=== PATIENT | female | born 1970 | race Caucasian/White ===

== ENCOUNTER 2016-09-11 14:15 | Emergency (ER) | payer BC, MEDICAID ==
[2016-09-11 14:37] VITALS: BP 103/70
[2016-09-11 14:56] LABS: BILIRUBIN,URINE NEGATIVE (NEGATIVE); PH,URINE 7.5 PH (5.0-7.5)
[2016-09-11 14:59] LABS: UA w/ MICROSCOPIC CHARGE YES
[2016-09-11 15:11] LABS: WBC,URINE >25 /HPF (0-5)
[2016-09-11 15:12] LABS: UR CULTURE IF IND INDICATED
--- NOTE | 2016-09-11 15:41 | ED Physician Documentation ---
PD HPI FEMALE - Stated complaint Stated Complaint: FEMALE - Chief complaint Chief Complaint: UTI - History obtained from History obtained from: Patient - History of Present Illness Timing - onset: How many days ago (4) Timing - duration: Days (4) Timing - details: Gradual onset, Still present Associated symptoms: Back pain, Dysuria, Urinary frequency Similar symptoms before: Diagnosis (UTI) Recently seen: Not recently seen - Additional information Additional information: 46-year-old female has developed acute urinary urgency frequency and dysuria this is not much better with the use of the Azo. She has been drinking extra fluids. She has now developed some flank pain this morning. She has not had any fever or nausea. Review of Systems Constitutional: denies: Fever, Chills Eyes: denies: Decreased vision Ears: denies: Ear pain Nose: denies: Congestion Respiratory: denies: Cough GI: denies: Abdominal Pain, Nausea, Vomiting, Constipation, Diarrhea : reports: Dysuria, Frequency Skin: denies: Rash Musculoskeletal: reports: Back pain. 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 - Present Medications Home Medications: Ambulatory Orders Medication Instructions Recorded Confirmed Ciprofloxacin HCl [Cipro] 500 mg PO BID #10 tablet 09/11/16 - Allergies Allergies/Adverse Reactions: Allergies Allergy/AdvReac Type Severity Reaction Status Date / Time Penicillins Allergy Severe Respiratory Verified 09/11/16 14:37 codeine Allergy Intermediate Dizziness Verified 09/11/16 14:37 Sulfa (Sulfonamide Allergy Intermediate Rash Verified 09/11/16 14:37 Antibiotics) povidone-iodine Allergy Rash Verified 09/11/16 14:37 [From Betadine] soap * [From Betadine] Allergy Rash Verified 09/11/16 14:37 - Social History Does the pt smoke?: No Smoking Status: Never smoker Does the pt drink ETOH?: Yes Does the pt have substance abuse?: No - Immunizations Immunizations are current?: Yes - POLST Patient has POLST: No PD ED PE NORMAL - Vitals Vital signs reviewed: Yes (normal ) - General General: Alert and oriented X 3, No acute distress, Well developed/nourished - HEENT HEENT: Atraumatic, PERRL - Respiratory Respiratory: No respiratory distress - Back Back: No spinal TTP, Other (mild left flank pain to palpation. ) - Derm Derm: Normal color, Warm and dry, No rash - Extremities Extremities: No deformity, No edema - Neuro Neuro: No motor deficit, No sensory deficit - Psych Psych: Normal mood, Normal affect Results - Vitals Vitals: Vital Signs - 24 hr 09/11/16 14:20 Temperature 36.8 C Heart Rate 68 Respiratory 14 Rate Blood Pressure 103/70 O2 Saturation 100 Oxygen O2 Source Room air - Labs Labs: Laboratory Tests 09/11/16 14:47 Urine Color YELLOW Urine Clarity HAZY Urine pH 7.5 Ur Specific [place] 1.010 Urine Protein NEGATIVE Urine Glucose (UA) NEGATIVE Urine Ketones NEGATIVE Urine Occult Blood MODERATE H Urine Nitrite NEGATIVE Urine Bilirubin NEGATIVE Urine Urobilinogen 0.2 (NORMAL) Ur Leukocyte Esterase NEGATIVE Urine RBC TNTC H Urine WBC >25 H Ur Squamous Epith Cells FEW Squamous Urine Bacteria Moderate H Ur Microscopic Review INDICATED Urine Culture Comments INDICATED PD MEDICAL DECISION MAKING - ED course Complexity details: reviewed old records, reviewed results, re-evaluated patient , considered differential, d/w patient ED course: 46-year-old female with urinary symptoms for several days has evidence of urinary tract infection on microscopic examination of the urine and she is allergic to penicillin and sulfa. We will place her on some Cipro. Departure - Departure Disposition: 01 Home, Self Care Clinical Impression: Urinary tract infection Qualifiers: Urinary tract infection type: acute cystitis Hematuria presence: without hematuria Qualified Code(s): N30.00 - Acute cystitis without hematuria Condition: Stable Instructions: ED UTI Cystitis Female Follow-Up: [facility] [Provider Group] Prescriptions: Ciprofloxacin HCl [Cipro] 500 mg PO BID #10 tablet
== END 2016-09-11 15:50 | disposition home or self-care (01) ==
LOC: ED 14:15
DX: N30.00 Acute cystitis without hematuria (principal); Z98.84 Bariatric surgery status
CPT/HCPCS: 81001; 81003; 87077; 87086; 99283

== ENCOUNTER 2017-04-13 13:03 | Emergency (ER) | payer SELFPAY ==
[2017-04-13 13:37] LABS: BILIRUBIN,URINE NEGATIVE (NEGATIVE); GLUCOSE, URINE (UA) NEGATIVE (NEGATIVE); KETONES,URINE (UA) NEGATIVE (NEGATIVE); LEUKOCYTE ESTERASE, URINE TRACE (NEGATIVE); NITRITE,URINE NEGATIVE (NEGATIVE); OCCULT BLOOD,URINE MODERATE (NEGATIVE); PH,URINE 6.5 PH (5.0-7.5); PROTEIN,URINE 100 mg/dL (NEGATIVE); UROBILINOGEN,URINE 0.2 (NORMAL) E.U./dL (NORMAL)
[2017-04-13 13:38] LABS: CLARITY,URINE CLOUDY (CLEAR)
[2017-04-13 13:55] LABS: BACTERIA,URINE Many /HPF (None Seen); SQUAMOUS EPITHELIAL CELL,UR RARE Squamous (<= Few); WBC CLUMPS,URINE PRESENT
--- NOTE | 2017-04-13 14:27 | ED Physician Documentation ---
PD HPI FEMALE - Stated complaint Stated Complaint: FEMALE - Chief complaint Chief Complaint: Abd Pain - History obtained from History obtained from: Patient - History of Present Illness Timing - onset: Yesterday Timing - duration: Days (1) Timing - details: Gradual onset, Still present Associated symptoms: Abdominal pain, Back pain, Urinary frequency. 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 denies: Vomiting, Diarrhea : reports: Frequency. denies: Dysuria, Discharge Skin: denies: Rash, Lesions Neurologic: reports: Generalized weakness. 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 - Present Medications Home Medications: Ambulatory Orders Medication Instructions Recorded Confirmed Ciprofloxacin HCl [Cipro] 500 mg PO BID #10 tablet 09/11/16 Naproxen 375 mg PO BID #20 tablet 04/13/17 Nitrofurantoin Monohyd/M-Cryst 100 mg PO BID #14 capsule 04/13/17 [Macrobid 100 mg Capsule] Ondansetron Odt [Zofran] 4 mg TL Q6H PRN #15 tablet 04/13/17 Tramadol HCl 50 mg PO Q6H PRN #20 tablet 04/13/17 - Allergies Allergies/Adverse Reactions: Allergies Allergy/AdvReac Type Severity Reaction Status Date / Time Penicillins Allergy Severe Respiratory Verified 09/11/16 14:37 codeine Allergy Intermediate Dizziness Verified 09/11/16 14:37 Sulfa (Sulfonamide Allergy Intermediate Rash Verified 09/11/16 14:37 Antibiotics) povidone-iodine Allergy Rash Verified 09/11/16 14:37 [From Betadine] soap * [From Betadine] Allergy Rash Verified 09/11/16 14:37 - Social History Does the pt smoke?: No Smoking Status: Never smoker Does the pt drink ETOH?: Yes Does the pt have substance abuse?: No - Immunizations Immunizations are current?: Yes - POLST Patient has POLST: No PD ED PE NORMAL - Vitals Vital signs reviewed: Yes - General General: Alert and oriented X 3, Well developed/nourished, Other (appears in pain) - HEENT HEENT: PERRL, Pharynx benign - Neck Neck: Supple, no meningeal sign, No adenopathy - Cardiac Cardiac: No murmur - Respiratory Respiratory: Clear bilaterally - Abdomen Abdomen: Soft, Non tender - Female Female : Deferred - Rectal Rectal: Deferred - Back Back: No CVA TTP - Derm Derm: Normal color, Warm and dry - Extremities Extremities: No tenderness to palpate, Normal ROM s pain, No edema, No calf tenderness / cord - Neuro Neuro: Alert and oriented X 3, No motor deficit, Normal speech Results - Vitals Vitals: Vital Signs - 24 hr 04/13/17 04/13/17 04/13/17 13:06 15:33 16:30 Temperature 37 C Heart Rate 77 56 L 56 L Respiratory 18 12 18 Rate Blood Pressure 117/70 112/64 99/59 L O2 Saturation 100 98 100 04/13/17 04/13/17 17:30 18:30 Temperature Heart Rate 60 60 Respiratory 18 18 Rate Blood Pressure 110/60 110/60 O2 Saturation 100 100 Oxygen O2 Source Room air - Labs Labs: Microbiology 04/13/17 13:34 Urine Culture - Preliminary Urine,Clean Catch Escherichia Coli Laboratory Tests 04/13/17 04/13/17 04/13/17 13:34 14:45 14:45 WBC 5.9 RBC 3.40 L Hgb 11.0 L Hct 32.7 L MCV 96.0 MCH 32.4 H MCHC 33.8 RDW 12.7 Plt Count 179 MPV 8.9 Neut # 4.5 Lymph # 1.0 L [place] # 0.4 Eos # 0.0 Baso # 0.0 Absolute Nucleated RBC 0.00 Nucleated RBC % 0.0 Sodium 138 Potassium 4.0 Chloride 108 Carbon Dioxide 25 Anion Gap 5.0 L BUN 9 Creatinine 0.6 Estimated GFR (MDRD) 108 Glucose 64 L Calcium 8.7 Total Bilirubin 0.5 AST 17 ALT 12 Alkaline Phosphatase 47 Total Protein 7.1 Albumin 4.1 Globulin 3.0 Albumin/Globulin Ratio 1.4 Lipase 16 L Urine Color YELLOW Urine Clarity CLOUDY Urine pH 6.5 Ur Specific [place] 1.025 Urine Protein 100 H Urine Glucose (UA) NEGATIVE Urine Ketones NEGATIVE Urine Occult Blood MODERATE H Urine Nitrite NEGATIVE Urine Bilirubin NEGATIVE Urine Urobilinogen 0.2 (NORMAL) Ur Leukocyte Esterase TRACE H Urine RBC 11-25 H Urine WBC 11-25 H Urine WBC Clumps PRESENT Ur Squamous Epith Cells RARE Squamous Urine Bacteria Many H Ur Microscopic Review INDICATED Urine Culture Comments INDICATED PD MEDICAL DECISION MAKING - ED course Complexity details: reviewed results (she thought she had had ovary removed on right, s/p hyst. Having RLQ pain. Mild UTI but not enough to account for symptoms. No stones/hydro. Appendix not seen but no secondary signs of infection there. Does have 5 cm cyst on right, so likely cause of the pain. No free fluid. ), re-evaluated patient (improved after IV meds. 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 ), considered differential, d/w patient Departure - Departure Disposition: Home, Self Care Clinical Impression: Lower abdominal pain UTI (urinary tract infection) Qualifiers: Urinary tract infection type: acute cystitis Hematuria presence: without hematuria Qualified Code(s): N30.00 - Acute cystitis without hematuria Ovarian cyst Qualifiers: Laterality: right Qualified Code(s): N83.201 - Unspecified ovarian cyst, right side Record reviewed to determine appropriate education?: Yes Instructions: ED Cyst Ovarian, ED UTI Cystitis Female Follow-Up: Juan Carter MD [Provider Admit Priv/Credential] - Prescriptions: Naproxen 375 mg PO BID #20 tablet Nitrofurantoin Monohyd/M-Cryst [Macrobid 100 mg Capsule] 100 mg PO BID #14 capsule Ondansetron Odt [Zofran] 4 mg TL Q6H PRN #15 tablet PRN Reason: Nausea / Vomiting Tramadol HCl 50 mg PO Q6H PRN #20 tablet PRN Reason: Pain Comments: You do have a mild bladder infection and use Macrobid twice daily for a week for that. I do not think that is the cause of your pain right now. You do have a large ovarian cyst on the right and that is likely the cause. Naproxen twice daily for inflammation. Add Tylenol or tramadol if needed for pains. Call [facility] tomorrow for an appointment for follow-up later in the week. Recheck if worsening symptoms. Forms: Activity restrictions Discharge Date/Time: 04/13/17 19:25
[2017-04-13] MEDS ORDERED: KETOROLAC 60 MG/2 ML VIAL IVP STA (14:44)
[2017-04-13] MEDS ORDERED: HYDROmorphone 1 MG/ML SYRINGE IVP STA ×2 (14:44→16:18)
[2017-04-13] MEDS ORDERED: ONDANSETRON 4 MG/2 ML VIAL IVP STA ×2 (14:44→16:38)
[2017-04-13 15:09] LABS: BASOPHILS % (AUTO) 0.6 %; EOSINOPHILS % (AUTO) 0.2 %; LYMPHOCYTES % (AUTO) 16.6 %; MEAN CORPUSCULAR HEMOGLOBIN 32.4 pg (27.0-31.0); MEAN CORPUSCULAR HGB CONC 33.8 g/dL (32.0-36.0); MEAN PLATELET VOLUME 8.9 fL (7.9-10.8); MONOCYTES # (AUTO) 0.4 10^3/uL (0.0-1.0); MONOCYTES % (AUTO) 7.3 %; NEUTROPHILS # (AUTO) 4.5 10^3/uL (1.5-6.6); NEUTROPHILS % (AUTO) 75.3 %; PLT - PLATELET COUNT 179 10^3/uL (130-450); RED CELL DISTRIBUTION WIDTH 12.7 % (12.0-15.0); WHITE BLOOD COUNT 5.9 x10^3/uL (4.8-10.8)
[2017-04-13 15:26] LABS: ALBUMIN 4.1 g/dL (3.2-5.5); ALBUMIN/GLOBULIN RATIO 1.4 (1.0-2.2); BILIRUBIN,TOTAL 0.5 mg/dL (0.2-1.0); CALCIUM 8.7 mg/dL (8.5-10.3); CREATININE 0.6 mg/dL (0.4-1.0); TOTAL PROTEIN 7.1 g/dL (6.7-8.2)
--- NOTE | 2017-04-13 15:41 | CT Report ---
EXAM: CT ABDOMEN AND PELVIS (CT KUB) EXAM DATE: 04/13/2017 03:20 PM. CLINICAL HISTORY: Right low back/flank pain today. COMPARISONS: 04/03/2013. TECHNIQUE: Routine axial helical CT imaging was performed through the abdomen and pelvis without IV c ontrast. Reconstructions: Coronal and sagittal. In accordance with CT protocol optimization, one or more of the following dose reduction techniques w ere utilized for this exam: automated exposure control, adjustment of mA and/or KV based on patient s ize, or use of iterative reconstructive technique. FINDINGS: Lung Bases: Unremarkable. Right Kidney/Ureter: No stones, hydronephrosis, or hydroureter. No perinephric fat stranding. Left Kidney/Ureter: No stones, hydronephrosis, or hydroureter. No perinephric fat stranding. Other Solid Organs: Noncontrast images of the solid organs are grossly unremarkable. Gallbladder/Bile Ducts: Unremarkable. Peritoneal Cavity: No free fluid, free air or katelyn adenopathy. There is surgical clips from the stom ach suggestive of prior Krystyna-en-Y gastrostomy. Bowel is otherwise grossly unremarkable. Pelvic Organs: No bladder stones or wall thickening. The patient appears to be post-hysterectomy. The right ovary measures approximately 4.5 x 2.9 x 2.9 cm (series 3 image 75, and series 6 image 45). Th e left ovary appears within normal limits. No free fluid in the pelvis. Vasculature: Unremarkable. Other: There is mild degenerative disk change at the L5-S1 level. No acute osseous abnormality or gustavo picious osseous lesion. IMPRESSION: 1. No urinary tract stones or obstruction. 2. The right ovary appears somewhat enlarged compared to the prior exam, measuring up to 4.6 cm in di ameter. Pelvic ultrasound may be helpful for further evaluation. [facility] Referring Provider Line: [phone] SITE ID: [id number]
--- NOTE | 2017-04-13 18:15 | Ultrasound Preliminary Report ---
Exam: US PEL NON OB W/TV + DOP LTD IMPRESSION: 1. The right ovary is enlarged by a septated cyst or 2 adjacent cysts. There is blood flow in the rig ht ovary on Doppler. Left ovary is not seen on ultrasound but is normal in size on today's CT. [facility] SITE ID: [id number]
--- NOTE | 2017-04-13 18:15 | Ultrasound Report ---
EXAM: PELVIC ULTRASOUND EXAM DATE: 04/13/2017 05:39 PM. CLINICAL HISTORY: Right lower abd pain. COMPARISON: CT 04/13/2017. TECHNIQUE: Realtime transabdominal pelvic scan performed to identify the uterus and adnexa and as an overview of other pelvic structures, followed by transvaginal scan to provide greater detail of the u terus and adnexa, with static image documentation. FINDINGS: Uterus not visualized. Right Ovary: 5.2 x 2.4 x 4.6 cm, volume 30 cc. There is a septated complex cyst versus 2 adjacent cys ts located within the right ovary. The total area measures 4.7 x 2.8 x 4.5 cm. Flow is present within the right ovarian tissue on Doppler. Left Ovary: Not seen Free Fluid: None. Other: None. IMPRESSION: 1. The right ovary is enlarged by a septated cyst or 2 adjacent cysts. There is blood flow in the rig ht ovary on Doppler. Left ovary is not seen on ultrasound but is normal in size on today's CT. [facility] Referring Provider Line: [phone] SITE ID: [id number]
[2017-04-13] MEDS ORDERED: NITROFURANTOIN MACRO 100 MG CAPSULE PO STA (18:21)
[2017-04-13 18:41] VITALS: BP 110/60
== END 2017-04-13 19:25 | disposition home or self-care (01) ==
LOC: ED 13:03
DX: N83.201 Unspecified ovarian cyst, right side (principal); N30.00 Acute cystitis without hematuria
CPT/HCPCS: 36415; 51798; 74176; 76830; 76856; 80053; 81001; 83690; 85025; 87086; 87181; 93976; 96374; 96375; 96376; 99283; A9270; J1170; 81003

== ENCOUNTER 2018-02-10 23:58 | Outpatient (CLI) | payer MEDICAID | END 2018-02-10 23:59 | disposition critical access hospital (66) | LOC: EMS 23:58 | PROVIDERS: ATTEND Surgery | DX: S09.90XA Unspecified injury of head, initial encounter (principal); R45.1 Restlessness and agitation; W07.XXXA Fall from chair, initial encounter; Y92.511 Restaurant or cafe as the place of occurrence of the external cause | CPT/HCPCS: A0425; A0429; A0999 ==

== ENCOUNTER 2018-02-11 00:13 | Emergency (ER) | payer MEDICAID ==
[2018-02-11 00:37] VITALS: BP 118/74
--- NOTE | 2018-02-11 01:01 | ED Physician Documentation ---
PD HPI HEAD INJURY - Stated complaint Stated Complaint: FALL/HIT HEAD - Chief complaint Chief Complaint: Trauma Hd/Nk - History obtained from History obtained from: Patient, EMS - History of Present Illness Mechanism of head injury: Fell (off barstool and struck head) Where head injury occurred: Bar Timing - onset: How many hours ago (1) Pain level max: 5 Pain level now: 2 Location of injury: Back Quality of pain: Pain Associated symptoms: No: LOC, AMS, Amnesia, Nausea / vomiting, Neck pain, Paresthesias, Seizures, Ear drainage, Nasal drainage Symptoms improve with: Rest Symptoms worsen with: Palpation, Movement Contributing factors: Intoxicated Similar symptoms before: Has not had sx before Recently seen: Not recently seen Review of Systems Unable to obtain: Intoxicated Constitutional: denies: Fever GI: denies: Vomiting Neurologic: denies: Focal weakness, Numbness PD PAST MEDICAL HISTORY - Past Medical History Cardiovascular: None Respiratory: None GI: None : None - Past Surgical History Past Surgical History: Yes 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 - Present Medications Home Medications: Ambulatory Orders Medication Instructions Recorded Confirmed Ciprofloxacin HCl [Cipro] 500 mg PO BID #10 tablet 09/11/16 Naproxen 375 mg PO BID #20 tablet 04/13/17 Nitrofurantoin Monohyd/M-Cryst 100 mg PO BID #14 capsule 04/13/17 [Macrobid 100 mg Capsule] Ondansetron Odt [Zofran] 4 mg TL Q6H PRN #15 tablet 04/13/17 Tramadol HCl 50 mg PO Q6H PRN #20 tablet 04/13/17 - Allergies Allergies/Adverse Reactions: Allergies Allergy/AdvReac Type Severity Reaction Status Date / Time Penicillins Allergy Severe Respiratory Verified 09/11/16 14:37 codeine Allergy Intermediate Dizziness Verified 09/11/16 14:37 Sulfa (Sulfonamide Allergy Intermediate Rash Verified 09/11/16 14:37 Antibiotics) povidone-iodine Allergy Rash Verified 09/11/16 14:37 [From Betadine] soap * [From Betadine] Allergy Rash Verified 09/11/16 14:37 - Social History Does the pt smoke?: No Smoking Status: Never smoker Does the pt drink ETOH?: Yes Does the pt have substance abuse?: No - Immunizations Immunizations are current?: Yes - POLST Patient has POLST: No PD ED PE NORMAL - Vitals Vital signs reviewed: Yes (T36.8) - General General: Well developed/nourished, Other (alert, intermittently combative) - HEENT HEENT: Atraumatic, PERRL, Ears normal, Moist mucous membranes, Pharynx benign - Neck Neck: Other (mild upper C-spine TTP. no step off or deformity.) - Cardiac Cardiac: RRR - Respiratory Respiratory: No respiratory distress, Clear bilaterally - Abdomen Abdomen: Soft, Non tender, Non distended - Back Back: No spinal TTP - Derm Derm: Warm and dry - Extremities Extremities: No deformity, Normal ROM s pain - Neuro Neuro: No motor deficit, No sensory deficit Results - Vitals Vitals: Vital Signs - 24 hr 02/11/ 00:32 Heart Rate 93 Respiratory 18 Rate Blood Pressure 118/74 O2 Saturation 95 Oxygen O2 Source Room air - Rads (name of study) head CT Radiology: Prelim report reviewed, EMP read contemporaneously, See rad report (No acute abnormality) Cervical spine CT Radiology: Prelim report reviewed, EMP read contemporaneously, See rad report (No acute abnormality) PD MEDICAL DECISION MAKING - ED course Complexity details: reviewed results, re-evaluated patient, considered differential, d/w patient ED course: 47-year-old female who presents to the emergency department after a head and neck injury at a bar tonight. No acute findings on CT scan. No neurological deficits. She is intoxicated, however family is comfortable taking her home. She is discharged to family's care and will follow up with her doctor as needed. Patient and family counseled regarding signs and symptoms for which I believe and urgent re-evaluation would be necessary. Patient with good understanding of and agreement to plan and is comfortable going home at this time This document was made in part using voice recognition software. While efforts are made to proofread this document, sound alike and grammatical errors may occur. Departure - Departure Disposition: 01 Home, Self Care Clinical Impression: Neck pain Head injury Qualifiers: Encounter type: initial encounter Qualified Code(s): S09.90XA - Unspecified injury of head, initial encounter Alcohol intoxication Qualifiers: Complication of substance-induced condition: uncomplicated Qualified Code(s): F10.920 - Alcohol use, unspecified with intoxication, uncomplicated Condition: Stable Instructions: ED Head Injury Closed Follow-Up: your,doctor as needed. [Other] Comments: You can use Motrin or Tylenol as needed for pain. Return if you worsen. Your head CT and cervical spine CT are normal tonight. Discharge Date/Time: 02/11/18 02:10
--- NOTE | 2018-02-11 01:01 | CT Report ---
Reason: fall, head injury, pt intoxicated Procedure Date: 02/11/2018 Accession Number: [id number] / [id number] Procedure: CT - Head W/O CPT Code: FULL RESULT: EXAM: CT HEAD EXAM DATE: 02/11/2018 12:33 AM. CLINICAL HISTORY: Fall, head injury, patient intoxicated. COMPARISON: None. TECHNIQUE: Multiaxial CT images were obtained from the foramen magnum to the vertex. Reformats: Sagittal and coronal. IV contrast: None. In accordance with CT protocol optimization, one or more of the following dose reduction techniques were utilized for this exam: automated exposure control, adjustment of mA and/or KV based on patient size, or use of iterative reconstructive technique. FINDINGS: Parenchyma: No intraparenchymal hemorrhage. No evidence of mass, midline shift, or CT findings of infarction. Church-white differentiation is distinct. Extraaxial Spaces: Normal for age. No subdural or epidural collections identified. Ventricles: Normal in size and position. Sinuses and Orbits: Imaged paranasal sinuses, orbits, and mastoids show no significant abnormality. Bones: No evidence of fracture or calvarial defect. Other: None. IMPRESSION: Negative head CT. [facility]
--- NOTE | 2018-02-11 01:55 | CT Report ---
Reason: fall, neck injury, pt intoxicated Procedure Date: 02/11/2018 Accession Number: [id number] / [id number] Procedure: CT - Cervical Spine W/O CPT Code: FULL RESULT: EXAM: CT CERVICAL SPINE WITHOUT CONTRAST DATE: 02/11/2018 01:00 AM. HISTORY: Neck pain, altered mental status, fall. COMPARISONS: None. TECHNIQUE: Thin-section axial images were acquired of the cervical spine without contrast. Post-processing: Coronal and sagittal reformats. Other: None. In accordance with CT protocol optimization, one or more of the following dose reduction techniques were utilized for this exam: automated exposure control, adjustment of mA and/or KV based on patient size, or use of iterative reconstructive technique. FINDINGS: Alignment: No scoliosis or spondylolisthesis. Bones: No fracture or bone lesion. Interspace Levels/Facets: C1-C2: Unremarkable. C2-C3: Unremarkable. C3-C4: Unremarkable. C4-C5: Unremarkable. C5-C6: Unremarkable. C6-C7: Unremarkable. C7-T1: Unremarkable. Musculature: Normal. No fatty atrophy. Other: The paravertebral and prevertebral soft tissues are unremarkable. The lung apices are clear. IMPRESSION: Normal cervical spine CT. [facility]
== END 2018-02-11 02:10 | disposition home or self-care (01) ==
LOC: EDUNIT# → ED 00:13
DX: S09.90XA Unspecified injury of head, initial encounter (principal); M54.2 Cervicalgia; F10.129 Alcohol abuse with intoxication, unspecified; W07.XXXA Fall from chair, initial encounter; Y93.9 Activity, unspecified; Y92.89 Other specified places as the place of occurrence of the external cause
CPT/HCPCS: 70450; 72125; 99283

== ENCOUNTER 2018-07-07 17:38 | Outpatient (CLI) | payer MEDICAID | END 2018-07-07 17:39 | disposition critical access hospital (66) | LOC: EMS 17:38 | PROVIDERS: ATTEND Surgery | DX: M54.2 Cervicalgia (principal); R20.0 Anesthesia of skin; V49.40XA Driver injured in collision with unspecified motor vehicles in traffic accident, initial encounter; Y92.414 Local residential or business street as the place of occurrence of the external cause | CPT/HCPCS: A0425; A0429; A0999 ==

== ENCOUNTER 2018-07-07 17:59 | Emergency (ER) | payer OTHER, MEDICAID ==
[2018-07-07] MEDS ORDERED: KETOROLAC 30 MG/ML VIAL IM STA (18:12)
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
[2018-07-07] MEDS ORDERED: MORPHINE 10 MG/ML VIAL IM STA (19:21)
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
[2018-07-07 19:38] VITALS: BP 129/65
[2018-07-07] MEDS ORDERED: CYCLOBENZAPRINE 10 MG TABLET PO STA (20:11)
== END 2018-07-07 20:36 | disposition home or self-care (01) ==
LOC: EDUNIT# → ED 17:59
DX: S09.90XA Unspecified injury of head, initial encounter (principal); M54.2 Cervicalgia; M62.830 Muscle spasm of back; V43.52XA Car driver injured in collision with other type car in traffic accident, initial encounter
CPT/HCPCS: 70450; 72070; 72100; 72125; 96372; 99283; A9270

== ENCOUNTER 2019-01-16 12:04 | Emergency (ER) | payer MEDICAID, OTHER ==
[2019-01-16 12:16] VITALS: BP 107/60
[2019-01-16] MEDS ORDERED: IBUPROFEN 800 MG TABLET PO STA (12:40)
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
--- NOTE | 2019-01-16 13:36 | ED Physician Documentation ---
PD HPI LOWER EXT INJURY - Stated complaint Stated Complaint: RT FOOT PX - Chief complaint Chief Complaint: Ext Problem - History obtained from History obtained from: Patient - History of Present Illness PD HPI LOW EXT INJURY LOCATION: Right, Foot Type of injury: Twist Where injury occurred: Home Timing - onset: How many hours ago (1) Timing - duration: Hours (1) Timing - details: Abrupt onset Pain level max: 6 Pain level now: 5 Improved by: Rest, Ice, Immobilization Worsened by: Moving, Palpating, Other (walking) Associated symptoms: Swelling, Discolored (bruising). 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 - Present Medications Home Medications: Ambulatory Orders Medication Instructions Recorded Confirmed No Known Home Medications 01/16/19 01/16/19 - Allergies Allergies/Adverse Reactions: Allergies Allergy/AdvReac Type Severity Reaction Status Date / Time Penicillins Allergy Severe Respiratory Verified 01/16/19 12:16 codeine Allergy Intermediate Dizziness Verified 01/16/19 12:16 Sulfa (Sulfonamide Allergy Intermediate Rash Verified 01/16/19 12:16 Antibiotics) povidone-iodine Allergy Rash Verified 01/16/19 12:16 [From Betadine] soap * [From Betadine] Allergy Rash Verified 01/16/19 12:16 - Social History Does the pt smoke?: No Smoking Status: Never smoker Does the pt drink ETOH?: Yes Does the pt have substance abuse?: No - Immunizations Immunizations are current?: Yes - POLST Patient has POLST: No PD ED PE NORMAL - Vitals Vital signs reviewed: Yes - General General: Alert and oriented X 3, No acute distress - HEENT HEENT: Moist mucous membranes - Neck Neck: Supple, no meningeal sign - Cardiac Cardiac: RRR, Strong equal pulses - Respiratory Respiratory: No respiratory distress, Clear bilaterally - Derm Derm: Warm and dry - Extremities Extremities: Other (Right foot - Tender to palpation over the base of the fifth metatarsal. Mild swelling and ecchymosis. Otherwise normal examination of the foot and ankle. Neurovascular intact) - Neuro Neuro: Alert and oriented X 3 Results - Vitals Vitals: Vital Signs - 24 hr 01/16/19 12:14 Temperature 36.8 C Heart Rate 61 Respiratory 18 Rate Blood Pressure 107/60 O2 Saturation 100 Oxygen O2 Source Room air - Rads (name of study) Right foot x-ray Radiology: Prelim report reviewed, EMP read contemporaneously, See rad report (No acute abnormality) PD MEDICAL DECISION MAKING - ED course Complexity details: considered differential, d/w patient ED course: Patient with right foot sprain. Placed in a postop shoe for comfort. Declines crutches. Declines pain medication for home. No acute findings on x-ray. Patient counseled regarding signs and symptoms for which I believe and urgent re-evaluation would be necessary. Patient with good understanding of and agreement to plan and is comfortable going home at this time This document was made in part using voice recognition software. While efforts are made to proofread this document, sound alike and grammatical errors may occur. Departure - Departure Disposition: 01 Home, Self Care Clinical Impression: Sprain of right foot Qualifiers: Encounter type: initial encounter Qualified Code(s): S93.601A - Unspecified sprain of right foot, initial encounter Condition: Good Instructions: ED Sprain Foot Follow-Up: your,doctor in 1 week if not better [Other] Comments: You can use Motrin or Tylenol as needed for pain at home. Return if you worsen. You may bear weight as tolerated. Discharge Date/Time: 01/16/19 14:29
== END 2019-01-16 14:29 | disposition home or self-care (01) ==
LOC: ED 12:04
DX: S93.601A Unspecified sprain of right foot, initial encounter (principal); S90.31XA Contusion of right foot, initial encounter; X50.1XXA Overexertion from prolonged static or awkward postures, initial encounter; Y92.009 Unspecified place in unspecified non-institutional (private) residence as the place of occurrence of the external cause
CPT/HCPCS: 73630; 99283; 99284; A9270

== ENCOUNTER 2019-05-08 07:00 | Outpatient (CLI) | payer BC | END 2019-05-08 23:59 | disposition home or self-care (01) | LOC: LAB.R 07:00 | PROVIDERS: ATTEND Physician Assistant Medical | DX: R50.9 Fever, unspecified (principal) | CPT/HCPCS: 87275; 87276 ==

== ENCOUNTER 2019-05-08 14:51 | Outpatient (CLI) | payer BC ==
--- NOTE | 2019-05-09 13:40 | XRAY Report ---
Reason: PRODUCTIVE COUGH Procedure Date: 05/08/2019 Accession Number: [id number] / [id number] Procedure: XRN - Chest 2 View X-Ray CPT Code: 83881 Final Report FULL RESULT: EXAM: CHEST RADIOGRAPHY EXAM DATE: 05/08/2019 03:13 PM. CLINICAL HISTORY: Productive cough x7 days. Fever past 12 hours. COMPARISON: None. TECHNIQUE: 2 views. FINDINGS: Lungs/Pleura: Mild bilateral peribronchial thickening. No consolidation or vascular congestion. No pleural effusion or pneumothorax. Normal volumes. Mediastinum: Heart and mediastinal contours are unremarkable. Bones: No acute osseous findings identified. IMPRESSION: 1. Consistent with airways disease/bronchitis. No consolidative pneumonia. RADIA
== END 2019-05-08 14:52 | disposition home or self-care (01) ==
LOC: DI.N 14:51
PROVIDERS: ATTEND Physician Assistant Medical
DX: R05 Cough (principal)
CPT/HCPCS: 71046

== ENCOUNTER 2019-05-12 23:41 | Outpatient (CLI) | payer BC | END 2019-05-12 23:59 | disposition EMS.NT | LOC: EMS 23:41 | PROVIDERS: ATTEND Surgery | DX: Z04.1 Encounter for examination and observation following transport accident (principal) ==

== ENCOUNTER 2020-02-16 17:50 | Outpatient (CLI) | payer BC, MEDICAID ==
--- NOTE | 2020-02-16 14:52 | XRAY Report ---
PROCEDURE: Finger(s) RT INDICATIONS: RT INDEX FINGER- GANGLION CYST TECHNIQUE: AP hand, right views of the second finger(s) acquired. COMPARISON: None FINDINGS: Bones: No fractures or dislocations. No suspicious bony lesions. Soft tissues: No suspicious soft tissue calcifications. There is questionable soft tissue density a djacent to the second DIP joint. IMPRESSION: Additional soft tissue density adjacent to the second DIP joint. This could represent ganglion cyst a nd recommend clinical correlation to area of concern. No underlying osseous abnormality. Reviewed by: Adrienne Ruth MD on 02/16/2020 2:50 PM PST Approved by: Adrienne Ruth MD on 02/16/2020 2:50 PM PST Station ID: [id number]
== END 2020-02-16 23:59 | disposition home or self-care (01) ==
LOC: DI.N 17:50
PROVIDERS: ATTEND Physician Assistant
DX: M67.441 Ganglion, right hand (principal)

== ENCOUNTER 2020-03-05 13:29 | Outpatient (CLI) | payer BC, MEDICAID ==
[2020-03-05 14:11] LABS: MEAN CORPUSCULAR HEMOGLOBIN 30.4 pg (27.0-31.0); MEAN CORPUSCULAR HGB CONC 31.3 g/dL (32.0-36.0); MEAN CORPUSCULAR VOLUME 97.2 fL (81.0-99.0); MEAN PLATELET VOLUME 11.3 fL (7.9-10.8); RED BLOOD COUNT 3.62 10^6/uL (4.20-5.40); RED CELL DISTRIBUTION WIDTH 12.6 % (12.0-15.0); WHITE BLOOD COUNT 4.8 x10^3/uL (4.8-10.8)
[2020-03-05 14:28] LABS: URIC ACID 4.7 mg/dL (2.6-7.2)
[2020-03-05 14:41] LABS: CRP - C-REACTIVE PROTEIN < 1.0 mg/dL (0-1.0)
== END 2020-03-05 13:30 | disposition home or self-care (01) ==
LOC: LAB 13:29
PROVIDERS: ATTEND Family Medicine
DX: M10.9 Gout, unspecified (principal)
CPT/HCPCS: 36415; 84550; 85027; 85651; 86140

== ENCOUNTER 2020-03-21 07:12 | Outpatient (CLI) | payer BC, MEDICAID ==
[2020-03-21 07:47] LABS: % IRON SATURATION 15 % (20-50); ALBUMIN/GLOBULIN RATIO 1.3 (1.0-2.2); ALKALINE PHOSPHATASE 69 IU/L (42-121); ALT ALANINE AMINOTRANSFERASE 12 IU/L (10-60); AST ASPARTATE AMINOTRANSFERASE 14 IU/L (10-42); BILIRUBIN,TOTAL 0.7 mg/dL (0.2-1.0); BUN - BLOOD UREA NITROGEN 17 mg/dL (6-20); CALCIUM 8.6 mg/dL (8.5-10.3); CARBON DIOXIDE - CO2 24 mmol/L (21-32); CHLORIDE 108 mmol/L (101-111); CHOL/HDL RATIO 2.7 (<4.4); CHOLESTEROL 163 mg/dL; CREATININE 0.7 mg/dL (0.4-1.0); GLUCOSE 106 mg/dL (70-100); HDL CHOLESTEROL 60 mg/dL; IRON 60 ug/dL (28-170); LDL CHOLESTEROL,CALCULATED 95 mg/dL; LDL/HDL RATIO 1.6 (<4.4); TOTAL IRON BINDING CAPACITY 407 ug/dL (250-450); TOTAL PROTEIN 7.1 g/dL (6.7-8.2); TRANSFERRIN 291 mg/dL (192-382); VLDL CHOLESTEROL 8 mg/dL
[2020-03-21 08:05] LABS: FERRITIN 12.6 ng/mL (11.0-306.8)
[2020-03-21 08:08] LABS: FOLATE 19.03 ng/mL (5.90 - >24.8)
[2020-03-21 12:51] LABS: HEMOGLOBIN A1c% 5.1 % (4.27-6.07)
== END 2020-03-21 07:13 | disposition home or self-care (01) ==
LOC: LAB 07:12
PROVIDERS: ATTEND Family Medicine
DX: Z98.84 Bariatric surgery status (principal); D64.9 Anemia, unspecified
CPT/HCPCS: 36415; 80053; 80061; 82607; 82728; 82746; 83036; 83540; 83721; 84443; 84466

== ENCOUNTER 2020-04-22 12:41 | Outpatient (CLI) | payer BC, MEDICAID ==
--- NOTE | 2020-04-25 10:15 | Mammography Report ---
BILATERAL DIGITAL SCREENING MAMMOGRAM 3D/2D: 04/22/2020 CLINICAL: Routine screening. No prior exams were available for comparison. There are scattered fibroglandular elements in both br easts. No significant masses, calcifications, or other findings are seen in either breast. IMPRESSION: NEGATIVE There is no mammographic evidence of malignancy. A 1 year screening mammogram is recommended. This exam was interpreted at Station ID: [id number]. NOTE: For mammograms, a report in lay terms will be sent to the patient. Approximately 15% of breast malignancies will not be visualized mammographically. In the management of a palpable breast mass, a negative mammogram must not discourage biopsy of a clinically suspicious lesion. Electronically Signed By: Carlotta lai/chaparro:04/24/2020 11:09:25 ACR BI-RADS Category 1: Negative 3341F PARENCHYMAL PATTERN: (A) - The breast(s) demonstrate(s) scattered fibroglandular densities. BI-RADS CATEGORY: (1) - 1 RECOMMENDATION: (ANNUAL) - Recommend routine annual screening mammography. [id number] 1 year screening LATERALITY: (B)
== END 2020-04-22 12:42 | disposition home or self-care (01) ==
LOC: DI 12:41
DX: Z12.31 Encounter for screening mammogram for malignant neoplasm of breast (principal)

== ENCOUNTER 2020-06-24 08:00 | Outpatient (CLI) | payer BC, MEDICAID | END 2020-06-24 23:59 | disposition home or self-care (01) | LOC: LAB 08:00 | PROVIDERS: ATTEND Physician Assistant | DX: Z01.812 Encounter for preprocedural laboratory examination (principal); Z20.822 Contact with and (suspected) exposure to COVID-19 ==

== ENCOUNTER 2020-06-26 09:41 | Day surgery (SDC) | payer BC, MEDICAID ==
[2020-06-26] MEDS ORDERED: LACTATED RINGERS 1,000 ML IV ONE ×2 (10:08→15:29)
[2020-06-26] MEDS ORDERED: ceFAZolin 2 GM/50 ML 2 GM/50 ML BAG IV ONE (10:19)
--- NOTE | 2020-06-26 12:12 | ANESTHESIA ---
Pre-Anesthesia VS, & Labs - Diagnosis R index finger, ganglion cyst - Procedure R index finger debridement of distal joint and mucus cyst Vital Signs: Temp Pulse Resp BP Pulse Ox 36.5 C 73 16 94/44 L 97 06/26/20 10:08 06/26/20 10:08 06/26/20 10:08 06/26/20 10:08 06/26/20 10:08 Height: 5 ft 2 in Weight (kg): 90 kg Body Mass Index: 36.3 BMI Classification: Obese - NPO >8 hours - Is Patient ?: No - Lab Results Lab results reviewed: Yes Home Medications and Allergies Home Medications: Ambulatory Orders Ascorbic Acid [Vitamin C] 2,000 mg PO DAILY 06/24/20 Biotin 2,000 mcg PO DAILY 06/24/20 Cyanocobalamin (Vitamin B-12) [Vitamin B-12] 2,500 mcg PO DAILY 06/24/20 Lactobacillus Acidophilus [Probiotic Acidophilus] 1 each PO DAILY 06/24/20 Multivitamin 1 each PO DAILY 06/24/20 Cholecalciferol (Vitamin D3) [Vitamin D3] 125 mcg PO DAILY 06/26/20 Ascorbic Acid [Vitamin C] 2,000 mg PO DAILY 06/24/20 Biotin 2,000 mcg PO DAILY 06/24/20 Cyanocobalamin (Vitamin B-12) [Vitamin B-12] 2,500 mcg PO DAILY 06/24/20 Lactobacillus Acidophilus [Probiotic Acidophilus] 1 each PO DAILY 06/24/20 Multivitamin 1 each PO DAILY 06/24/20 Cholecalciferol (Vitamin D3) [Vitamin D3] 125 mcg PO DAILY 06/26/20 Allergies/Adverse Reactions: Allergies Allergy/AdvReac Type Severity Reaction Status Date / Time Penicillins Allergy Severe Respiratory Verified 06/26/20 10:22 codeine Allergy Intermediate Dizziness Verified 06/26/20 10:22 Sulfa (Sulfonamide Allergy Intermediate Rash Verified 06/26/20 10:22 Antibiotics) povidone-iodine Allergy Rash Verified 06/26/20 10:22 [From Betadine] soap * [From Betadine] Allergy Rash Verified 06/26/20 10:22 Anes History & Medical History - Anesthetic History Anesthesia Complications: reports: No previous complications, Other-see comment (slow to wake) Family history of Anesthesia Complications: Denies Family history of Malignant Hyperthermia: Denies - Medical History Cardiovascular: reports: None Pulmonary: reports: None Gastrointestinal: reports: Other Urinary: reports: None Musculoskeletal: reports: Osteoarthritis Endocrine/Autoimmune: reports: HyPOthyroidism Skin: reports: None Smoking Status: Never smoker - Surgical History General: reports: Gastric surgery, Other Gynecologic: reports: Hysterectomy, Breast reduction, Other Exam General: Alert, Oriented x3, Cooperative Dental: WNL Mouth Openin Fingerbreadth Neck Mobility: Normal Mallampati classification: II Thyromental Distance: 4-6 cm Respiratory: Lungs clear, Normal breath sounds, No respiratory distress Cardiovascular: Regular rate Neurological: Normal speech Mental/Cognitive Status: Alert/Oriented X3, Normal for patient Cognitive Status: Within normal limits Plan Anesthesia Type: General (back up), MAC Consent for Procedure(s) Verified and Reviewed: Yes Code Status: Attempt Resuscitation ASA classification: 1-Healthy patient Is this case an emergency?: No
[2020-06-26] MEDS ORDERED: oxyCODONE 5 MG TABLET PO PRN (13:31)
[2020-06-26] MEDS ORDERED: KETOROLAC 15 MG/ML VIAL IVP STA (13:31)
[2020-06-26] MEDS ORDERED: fentaNYL 100 MCG/2 ML VIAL ONE (13:36)
[2020-06-26] MEDS ORDERED: MIDAZOLAM 2 MG/2 ML VIAL ONE (13:36)
[2020-06-26] MEDS ORDERED: PROPOFOL 200 MG/20 ML VIAL IVP ONE (13:36)
[2020-06-26] MEDS ORDERED: BUPIVACAINE 0.5%-EPI 1:200000 PF 30 ML VIAL ONE (13:40)
[2020-06-26] MEDS ORDERED: BACITRACIN ZINC OINT 1 PACKET TOP ONE (13:40)
[2020-06-26] MEDS ORDERED: BUPIVACAINE 0.5% PF 10 ML VIAL ONE (14:26)
[2020-06-26] MEDS ORDERED: LIDOCAINE-MPF 1% 30 ML VIAL ONE (14:26)
[2020-06-26] MEDS ORDERED: BUPIVACAINE 0.5% PF 30 ML VIAL INFIL ONE ×2 (14:42)
[2020-06-26] MEDS ORDERED: LIDOCAINE 1% 50 ML MDV SUBQ ONE ×2 (14:43)
[2020-06-26] MEDS ORDERED: KETAMINE 500 MG/10 ML VIAL ONE (14:43)
--- NOTE | 2020-06-26 15:31 | OPERATIVE REPORT ---
Operative Report - General Procedure Date: 06/26/20 Planned Procedure: Debridement of right index distal interphalangeal joint and mucous cyst Pre-Op Diagnosis: Mucous cyst right index distal interphalangeal joint secondary to osteoarth Procedure Performed: Debridement of right index distal interphalangeal joint and mucous cyst Post Op Diagnosis: Same as preoperative diagnosis - Procedure Note Primary Surgeon: Crow Estes MD Secondary Surgeon: Agapito KANG Anesthesia Provider: Eli Puentes CRNA Anesthesia Technique: Moderate sedation, Regional block Estimated Blood Loss (mL): 1 Indications: This is a 50-year-old woman with pain and mass over the distal interphalangeal joint of the index finger. Her pain seems to be localized to the mass. 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 She did have a typical mucous cyst over the dorsal and ulnar aspect of the distal interphalangeal joint. Her fingernail was grossly normal. She had relatively good motion and subtle changes of arthrosis on x-ray of the distal interphalangeal joint right index finger. Findings: There is approximately 3 mm mucous cyst protruding the overlying skin, causing some thinning of the skin. There is subtle osteophytes about the distal interphalangeal joint. Complications: None - Other Other Information/Narrative: The patient was brought to the operating room. She was placed in the supine position with right upper extremity over arm extension table. Patient was given sedation. The right upper extremity was prepped and draped in a sterile manner in the usual fashion. A timeout procedure was performed by the entire operating room team and all were in agreement. A distal metacarpal block was performed with a 50-50 mixture of half percent Marcaine and 1% lidocaine without epinephrine. A digital tourniquet was applied to the base of the right index finger. After satisfactory anesthesia, a dorsal incision was made over the distal interphalangeal joint. Small skin hooks were used to open the incision. The extensor tendon was protected. An arthrotomy was made on each side of the extensor tendon beginning on the ulnar side, then the radial side. The base of the cyst on the ulnar side was excised. The capsule and tissue between the collateral ligament and extensor tendon was removed, exposing the joint. A small rongeur was used to remove small osteophytes about the joint. The joint was irrigated. The tourniquet was removed with good return of circulation. The skin incision was closed with a running 4-0 nylon suture. Xeroform, sterile gauze and a tube gauze dressing was applied to the right index finger. She tolerated the procedure well. The tourniquet time was approximately 20 minutes. A certified physician assistant director of public works was utilized to help provide exposure and protection of important structures such as the extensor tendon and nailbed.
--- NOTE | 2020-06-26 15:53 | ANESTHESIA POST OP EVALUATION ---
Anesthesia Post Eval - Post Anesthesia Eval Vitals: Last Vital Signs Temp 36.7 C 06/26/20 15:27 Pulse 71 06/26/20 15:42 Resp 15 06/26/20 15:42 BP 98/44 L 06/26/20 15:42 Pulse Ox 100 06/26/20 15:42 CV Function Including HR & BP: Stable Pain Control: Satisfactory Nausea & Vomiting: Negative Mental Status: Baseline Respiratory Status: Airway Patent Hydration Status: Satisfactory Anesthesia Complications: None
[2020-06-26 16:09] VITALS: BP 109/52
== END 2020-06-26 09:42 | disposition home or self-care (01) ==
LOC: SDS 09:41
PROVIDERS: ATTEND Orthopaedic Surgery
DX: M15.1 Heberden's nodes (with arthropathy) (principal); M25.841 Other specified joint disorders, right hand; E03.9 Hypothyroidism, unspecified; E66.9 Obesity, unspecified; Z68.36 Body mass index [BMI] 36.0-36.9, adult; Z98.84 Bariatric surgery status
CPT/HCPCS: 26080; J0690; J7120

== ENCOUNTER 2020-08-05 12:18 | Outpatient (CLI) | payer BC, MEDICAID ==
--- NOTE | 2020-08-05 14:15 | XRAY Report ---
PROCEDURE: Finger(s) RT INDICATIONS: OSTEOARTHRITIS OF FINGER, RIGHT TECHNIQUE: 3 views of the right second digit are obtained. COMPARISON: None FINDINGS: Bones: No fractures or dislocations. There is mild flexion at the distal interphalangeal joint. No s uspicious bony lesions. Soft tissues: No suspicious soft tissue calcifications. IMPRESSION: 1. Flexion at the distal interphalangeal joint of the second digit, consistent with extensor tendon i njury. 2. No acute fracture. No osseous lesion. If symptoms and/or clinical suspicion for pathology continue , further assessment with repeat plain films, or advanced imaging (e.g., CT, MRI, or bone scan) is re commended for further assessment. Reviewed by: Fariha Nguyen MD on 08/05/2020 2:14 PM PDT Approved by: Fariha Nguyen MD on 08/05/2020 2:14 PM PDT Station ID: [id number]
== END 2020-08-05 23:59 | disposition home or self-care (01) ==
LOC: DI.N 12:18
PROVIDERS: ATTEND Physician Assistant
DX: M21.241 Flexion deformity, right finger joints (principal)

== ENCOUNTER 2021-01-07 09:10 | Outpatient (CLI) | payer BC, MEDICAID ==
[2021-01-07 09:34] LABS: EOSINOPHILS % (AUTO) 0.3 %; HCT - HEMATOCRIT 36.6 % (37.0-47.0); HGB - HEMOGLOBIN 11.6 g/dL (12.0-16.0); LYMPHOCYTES # (AUTO) 1.1 10^3/uL (1.5-3.5); LYMPHOCYTES % (AUTO) 37.1 %; MEAN CORPUSCULAR HEMOGLOBIN 30.6 pg (27.0-31.0); MEAN CORPUSCULAR HGB CONC 31.7 g/dL (32.0-36.0); MEAN CORPUSCULAR VOLUME 96.6 fL (81.0-99.0); MEAN PLATELET VOLUME 10.5 fL (7.9-10.8); MONOCYTES # (AUTO) 0.3 10^3/uL (0.0-1.0); NEUTROPHILS # (AUTO) 1.6 10^3/uL (1.5-6.6); NEUTROPHILS % (AUTO) 52.3 %; PLT - PLATELET COUNT 193 10^3/uL (130-450); RED BLOOD COUNT 3.79 10^6/uL (4.20-5.40); RED CELL DISTRIBUTION WIDTH 12.7 % (12.0-15.0)
== END 2021-01-07 09:11 | disposition home or self-care (01) ==
LOC: LAB 09:10
PROVIDERS: ATTEND Orthopaedic Surgery
DX: M19.049 Primary osteoarthritis, unspecified hand (principal); M20.031 Swan-neck deformity of right finger(s)
CPT/HCPCS: 36415; 85025; 85651; 86140

== ENCOUNTER 2021-05-29 08:15 | Outpatient (CLI) | payer BC, MEDICAID ==
[2021-05-29 08:31] LABS: EOSINOPHILS % (AUTO) 0.5 %; HGB - HEMOGLOBIN 11.3 g/dL (12.0-16.0); LYMPHOCYTES # (AUTO) 1.7 10^3/uL (1.5-3.5); LYMPHOCYTES % (AUTO) 41.3 %; MEAN CORPUSCULAR HGB CONC 32.3 g/dL (32.0-36.0); MEAN CORPUSCULAR VOLUME 96.2 fL (81.0-99.0); MONOCYTES # (AUTO) 0.3 10^3/uL (0.0-1.0); MONOCYTES % (AUTO) 8.2 %; PLT - PLATELET COUNT 207 10^3/uL (130-450); RED BLOOD COUNT 3.64 10^6/uL (4.20-5.40); RED CELL DISTRIBUTION WIDTH 11.9 % (12.0-15.0)
[2021-05-29 08:51] LABS: % IRON SATURATION 14 % (20-50); ALBUMIN 4.5 g/dL (3.2-5.5); ALBUMIN/GLOBULIN RATIO 1.5 (1.0-2.2); ALKALINE PHOSPHATASE 72 IU/L (42-121); ALT ALANINE AMINOTRANSFERASE 30 IU/L (10-60); AST ASPARTATE AMINOTRANSFERASE 25 IU/L (10-42); BILIRUBIN,TOTAL 0.3 mg/dL (0.2-1.0); BUN - BLOOD UREA NITROGEN 13 mg/dL (6-20); CALCIUM 9.3 mg/dL (8.5-10.3); CARBON DIOXIDE - CO2 25 mmol/L (21-32); CHLORIDE 102 mmol/L (101-111); CHOL/HDL RATIO 2.8 (<4.4); CHOLESTEROL 194 mg/dL; CREATININE 0.7 mg/dL (0.4-1.0); GFR - MDRD 88 (>89); GLUCOSE 91 mg/dL (70-100); HDL CHOLESTEROL 70 mg/dL; IRON 65 ug/dL (28-170); LDL CHOLESTEROL,CALCULATED 108 mg/dL; LDL/HDL RATIO 1.5 (<4.4); POTASSIUM 3.7 mmol/L (3.5-5.0); SODIUM 137 mmol/L (135-145); TOTAL IRON BINDING CAPACITY 452 ug/dL (250-450); TOTAL PROTEIN 7.6 g/dL (6.7-8.2); TRANSFERRIN 323 mg/dL (192-382); TRIGLYCERIDES 80 mg/dL; VLDL CHOLESTEROL 16 mg/dL
[2021-05-29 09:04] LABS: THYROID STIMULATING HORMONE 2.71 uIU/mL (0.34-5.60)
[2021-05-29 09:10] LABS: FERRITIN 11.4 ng/mL (11.0-306.8)
[2021-05-29 09:32] LABS: FOLLICLE STIMULATING HORMONE 81.27 mIU/mL
[2021-05-29 13:07] LABS: ESTIMATED AVERAGE GLUCOSE 97 mg/dL (70-100)
== END 2021-05-29 08:16 | disposition home or self-care (01) ==
LOC: LAB 08:15
PROVIDERS: ATTEND Family Medicine
DX: Z98.84 Bariatric surgery status (principal); Z79.890 Hormone replacement therapy
CPT/HCPCS: 36415; 80053; 80061; 82607; 82728; 83001; 83036; 83540; 83721; 84443; 84466; 85025

== ENCOUNTER 2022-02-09 07:33 | Outpatient (CLI) | payer BC, MEDICAID ==
[2022-02-09 08:01] LABS: CALCIUM 8.8 mg/dL (8.5-10.3); CREATININE 0.7 mg/dL (0.4-1.0); POTASSIUM 3.9 mmol/L (3.5-5.0)
[2022-02-09 08:19] LABS: THYROID STIMULATING HORMONE 3.01 uIU/mL (0.34-5.60)
--- NOTE | 2022-02-09 11:38 | Ultrasound Report ---
PROCEDURE: Head or Neck Soft Tissue INDICATIONS: TENDERNESS OF NECK TECHNIQUE: Real-time scanning was performed of the thyroid gland, with image documentation. COMPARISON: None. FINDINGS: Right: Right thyroid lobe measures 5.6 x 2.1 x 2.0 cm. Homogeneous echotexture. No focal thyroid nod ules or masses. Left: Left thyroid lobe measures 4.8 x 1.7 x 1.7 cm. Homogeneous echotexture without focal thyroid n odules or masses. Isthmus: 0.3 cm IMPRESSION: Normal sonographic appearance of the thyroid gland. No suspicious mass lesions or adenopathy seen. Reviewed by: Diego Han MD on 02/09/2022 11:37 AM PST Approved by: Diego Han MD on 02/09/2022 11:37 AM [facility] Station ID: [id number]
[2022-02-09 12:36] LABS: ESTIMATED AVERAGE GLUCOSE 88 mg/dL (70-100); HEMOGLOBIN A1c% 4.7 % (4.27-6.07)
== END 2022-02-09 07:34 | disposition home or self-care (01) ==
LOC: DI 07:33
PROVIDERS: ATTEND Nurse Practitioner Family
DX: M54.2 Cervicalgia (principal); R63.5 Abnormal weight gain; Z86.39 Personal history of other endocrine, nutritional and metabolic disease
CPT/HCPCS: 36415; 80048; 83036; 84443

== ENCOUNTER 2022-02-19 13:15 | Outpatient (CLI) | payer BC, MEDICAID ==
--- NOTE | 2022-02-24 10:16 | Mammography Report ---
BILATERAL DIGITAL SCREENING MAMMOGRAM 3D/2D: 02/19/2022 CLINICAL: Routine screening. Comparison is made to exam dated: 04/22/2020 mammogram - [facility]. There are scattered areas of fibroglandular density in both breasts (category b / 25%-50% glandular t issue). No significant masses, calcifications, or other findings are seen in either breast. There has been no significant interval change. IMPRESSION: NEGATIVE There is no mammographic evidence of malignancy. A 1 year screening mammogram is recommended. Based on the Tyrer Cuzick model (a risk assessment model) the patients lifetime risk is 6.6% and her 10 year risk is 1.6%. According to the ACR, ACS, and NCCN guidelines, an annual breast MRI exam gopal g with mammogram is recommended if the patients lifetime risk is 20% or greater. This exam was interpreted at Station ID: [id number]. NOTE: For mammograms, a report in lay terms will be sent to the patient. Approximately 15% of breast malignancies will not be visualized mammographically. In the management of a palpable breast mass, a negative mammogram must not discourage biopsy of a clinically suspicious lesion. Electronically Signed By: Kane Rivera M.D., jr/chaparro:02/19/2022 14:55:25 ACR BI-RADS Category 1: Negative 3341F PARENCHYMAL PATTERN: (A) - The breast(s) demonstrate(s) scattered fibroglandular densities. BI-RADS CATEGORY: (1) - 1 RECOMMENDATION: (ANNUAL) - Recommend routine annual screening mammography. [id number] 1 year screening LATERALITY: (B)
== END 2022-02-19 13:16 | disposition home or self-care (01) ==
LOC: DI 13:15
DX: Z12.31 Encounter for screening mammogram for malignant neoplasm of breast (principal)

== ENCOUNTER 2022-06-25 07:15 | Outpatient (CLI) | payer BC, MEDICAID ==
[2022-06-25 07:32] LABS: BILIRUBIN,URINE NEGATIVE (NEGATIVE); GLUCOSE, URINE (UA) NEGATIVE (NEGATIVE); KETONES,URINE (UA) NEGATIVE (NEGATIVE); LEUKOCYTE ESTERASE, URINE NEGATIVE (NEGATIVE); NITRITE,URINE NEGATIVE (NEGATIVE); OCCULT BLOOD,URINE NEGATIVE (NEGATIVE); PROTEIN,URINE NEGATIVE (NEGATIVE); UROBILINOGEN,URINE 0.2 (NORMAL) E.U./dL (NORMAL)
[2022-06-25 07:33] LABS: EOSINOPHILS % (AUTO) 0.3 %; HCT - HEMATOCRIT 35.4 % (37.0-47.0); LYMPHOCYTES # (AUTO) 1.6 10^3/uL (1.5-3.5); LYMPHOCYTES % (AUTO) 41.6 %; MEAN CORPUSCULAR HEMOGLOBIN 30.3 pg (27.0-31.0); MEAN CORPUSCULAR HGB CONC 31.1 g/dL (32.0-36.0); MEAN CORPUSCULAR VOLUME 97.5 fL (81.0-99.0); MEAN PLATELET VOLUME 10.5 fL (7.9-10.8); MONOCYTES # (AUTO) 0.2 10^3/uL (0.0-1.0); MONOCYTES % (AUTO) 5.4 %; NEUTROPHILS % (AUTO) 51.7 %; PLT - PLATELET COUNT 196 10^3/uL (130-450); RED BLOOD COUNT 3.63 10^6/uL (4.20-5.40); RED CELL DISTRIBUTION WIDTH 12.7 % (12.0-15.0); WHITE BLOOD COUNT 3.9 x10^3/uL (4.8-10.8)
[2022-06-25 07:36] LABS: CLARITY,URINE CLEAR (CLEAR)
[2022-06-25 07:40] LABS: ALBUMIN/GLOBULIN RATIO 1.3 (1.0-2.2); BILIRUBIN,TOTAL 0.5 mg/dL (0.2-1.0); CALCIUM 8.8 mg/dL (8.5-10.3); CREATININE 0.6 mg/dL (0.4-1.0); POTASSIUM 4.2 mmol/L (3.5-5.0); TOTAL PROTEIN 7.1 g/dL (6.7-8.2)
[2022-06-25 07:44] LABS: RBC,URINE 0-5 /HPF (0-5); SQUAMOUS EPITHELIAL CELL,UR FEW Squamous (<= Few); WBC,URINE 0-3 /HPF (0-5)
[2022-06-25 07:45] LABS: BACTERIA,URINE Few /HPF (None Seen)
== END 2022-06-25 07:16 | disposition home or self-care (01) ==
LOC: LAB 07:15
PROVIDERS: ATTEND Nurse Practitioner Family
DX: E67.8 Other specified hyperalimentation (principal); R10.32 Left lower quadrant pain
CPT/HCPCS: 36415; 80053; 81001; 82607; 85025; 87086

== ENCOUNTER 2022-06-26 08:20 | Outpatient (CLI) | payer BC, MEDICAID ==
[2022-06-26] MEDS ORDERED: DIATR MEGLU/DIATRIZOATE SODIUM 120 ML BOTTLE ONE (08:28)
[2022-06-26] MEDS ORDERED: iohexoL-300 100 ML VIAL ONE (08:28)
--- NOTE | 2022-06-26 12:30 | CT Report ---
PROCEDURE: ABDOMEN/PELVIS W INDICATIONS: ABD PAIN, CONSTIPATION CONTRAST: 100ml omni 300 TECHNIQUE: After the administration of weight appropriate dose of intravenous contrast, 5 mm thick sections acqu ired from the diaphragms to the symphysis. 5 mm thick coronal and sagittal reformats were acquired. For radiation dose reduction, the following was used: automated exposure control, adjustment of mA and/or kV according to patient size. Oral contrast was also administered. COMPARISON: 04/03/2013 FINDINGS: Image quality: Excellent. Lung bases and heart: Lung bases are clear. Heart size is within normal limits. No pericardial effusi on seen. Liver: Mild diffuse hypoattenuation of the liver relative to the spleen compatible with mild hepatic steatosis. No focal intrahepatic lesions identified. Gallbladder and biliary tree: Unremarkable. No biliary dilation. Spleen: No splenomegaly. Pancreas: Pancreas is homogeneous in enhancement. No peripancreatic inflammation. Normal pancreatic c ontours. Adrenals: Unremarkable. Kidneys and ureters: No evidence for hydronephrosis or perinephric inflammation. Bilateral ureters ar e normal in course and caliber. Bowel and peritoneum: No bowel distension. No pathologic free fluid. Normal appendix. Stable postsurg ical changes of prior Krystyna-en-Y gastric bypass procedure. No evidence for obstruction or acute inflam matory changes. Lymph nodes: No central or retroperitoneal adenopathy. Vessels: Unremarkable. PELVIS Reproductive organs: The uterus is not visualized and presumably surgically absent. Bladder: Unremarkable. Lymph nodes: Unremarkable. Bones: No aggressive osseous abnormality. No acute compression fractures. Other: None. IMPRESSION: CT abdomen and pelvis without acute abnormalities. No evidence for acute inflammatory/infectious proc ess or bowel obstruction. Normal appendix. Mild diffuse hepatic steatosis. Stable postsurgical changes of prior Krystyna-en-Y gastric bypass procedure. Findings compatible with previous hysterectomy. Recommend verification with past surgical history. Reviewed by: Diego Han MD on 06/26/2022 12:29 PM PDT Approved by: Diego Han MD on 06/26/2022 12:29 PM PDT Station ID: [id number]
[2022-06-26] MEDS ORDERED: iohexoL-300 100 ML VIAL IVP ONE (18:07)
[2022-06-26] MEDS ORDERED: DIATRIZOATE MEGLU/DIATRIZO SOD 30 ML BOTTLE PO ONE (18:07)
== END 2022-06-26 08:21 | disposition home or self-care (01) ==
LOC: DI 08:20
PROVIDERS: ATTEND Nurse Practitioner Family
DX: K59.00 Constipation, unspecified (principal); R10.32 Left lower quadrant pain; K76.0 Fatty (change of) liver, not elsewhere classified; Z90.710 Acquired absence of both cervix and uterus
CPT/HCPCS: 74177; Q9963; Q9967

== ENCOUNTER 2022-09-04 08:34 | Outpatient (CLI) | payer BC, MEDICAID ==
[2022-09-04 08:44] LABS: EOSINOPHILS % (AUTO) 0.2 %; HCT - HEMATOCRIT 35.1 % (37.0-47.0); HGB - HEMOGLOBIN 11.1 g/dL (12.0-16.0); LYMPHOCYTES # (AUTO) 1.7 10^3/uL (1.5-3.5); LYMPHOCYTES % (AUTO) 41.6 %; MEAN CORPUSCULAR HEMOGLOBIN 30.2 pg (27.0-31.0); MEAN CORPUSCULAR HGB CONC 31.6 g/dL (32.0-36.0); MEAN CORPUSCULAR VOLUME 95.4 fL (81.0-99.0); MEAN PLATELET VOLUME 10.5 fL (7.9-10.8); MONOCYTES # (AUTO) 0.3 10^3/uL (0.0-1.0); MONOCYTES % (AUTO) 6.4 %; NEUTROPHILS % (AUTO) 50.6 %; PLT - PLATELET COUNT 211 10^3/uL (130-450); RED BLOOD COUNT 3.68 10^6/uL (4.20-5.40); RED CELL DISTRIBUTION WIDTH 12.4 % (12.0-15.0)
[2022-09-04 09:02] LABS: ALBUMIN 4.3 g/dL (3.2-5.5); ALBUMIN/GLOBULIN RATIO 1.2 (1.0-2.2); ALKALINE PHOSPHATASE 71 IU/L (42-121); ALT ALANINE AMINOTRANSFERASE 21 IU/L (10-60); AST ASPARTATE AMINOTRANSFERASE 20 IU/L (10-42); BILIRUBIN,TOTAL 0.7 mg/dL (0.2-1.0); BUN - BLOOD UREA NITROGEN 14 mg/dL (6-20); CARBON DIOXIDE - CO2 25 mmol/L (21-32); CHLORIDE 104 mmol/L (101-111); CREATININE 0.7 mg/dL (0.4-1.0); GFR - MDRD 88 (>89); GLUCOSE 89 mg/dL (70-100); POTASSIUM 4.1 mmol/L (3.5-5.0); SODIUM 137 mmol/L (135-145); TOTAL PROTEIN 7.8 g/dL (6.7-8.2)
[2022-09-04 09:03] LABS: CRP - C-REACTIVE PROTEIN < 1.0 mg/dL (0-1.0)
== END 2022-09-04 08:35 | disposition home or self-care (01) ==
LOC: LAB 08:34
PROVIDERS: ATTEND Physician Assistant
DX: R10.9 Unspecified abdominal pain (principal); G89.29 Other chronic pain; R19.7 Diarrhea, unspecified; D64.9 Anemia, unspecified
CPT/HCPCS: 36415; 80053; 85025; 86140

== ENCOUNTER 2023-07-13 12:35 | Emergency (ER) | payer BC ==
[2023-07-13 13:28] VITALS: BP 130/71; O2SAT 100
== END 2023-07-13 14:11 | disposition left against medical advice (07) ==
LOC: ED 12:35
DX: Z53.21 Procedure and treatment not carried out due to patient leaving prior to being seen by health care provider (principal)

== ENCOUNTER 2023-08-12 08:33 | Outpatient (CLI) | payer BC ==
[2023-08-12 09:01] LABS: BASOPHILS # (AUTO) 0.1 10^3/uL (0.0-0.1); BASOPHILS % (AUTO) 1.6 %; EOSINOPHILS % (AUTO) 0.6 %; HCT - HEMATOCRIT 37.8 % (37.0-47.0); HGB - HEMOGLOBIN 11.7 g/dL (12.0-16.0); LYMPHOCYTES # (AUTO) 1.4 10^3/uL (1.5-3.5); LYMPHOCYTES % (AUTO) 44.9 %; MEAN CORPUSCULAR HEMOGLOBIN 30.2 pg (27.0-31.0); MEAN CORPUSCULAR VOLUME 97.4 fL (81.0-99.0); MEAN PLATELET VOLUME 10.8 fL (7.9-10.8); MONOCYTES # (AUTO) 0.2 10^3/uL (0.0-1.0); MONOCYTES % (AUTO) 5.8 %; NEUTROPHILS # (AUTO) 1.5 10^3/uL (1.5-6.6); NEUTROPHILS % (AUTO) 46.8 %; PLT - PLATELET COUNT 212 10^3/uL (130-450); RED BLOOD COUNT 3.88 10^6/uL (4.20-5.40); RED CELL DISTRIBUTION WIDTH 12.2 % (12.0-15.0); WHITE BLOOD COUNT 3.1 x10^3/uL (4.8-10.8)
[2023-08-12 09:04] LABS: ALBUMIN 4.5 g/dL (3.2-5.5); ALBUMIN/GLOBULIN RATIO 1.4 (1.0-2.2); ALKALINE PHOSPHATASE 81 IU/L (42-121); ALT ALANINE AMINOTRANSFERASE 13 IU/L (10-60); AST ASPARTATE AMINOTRANSFERASE 15 IU/L (10-42); BILIRUBIN,TOTAL 0.4 mg/dL (0.2-1.0); BUN - BLOOD UREA NITROGEN 8 mg/dL (6-20); CALCIUM 9.5 mg/dL (8.5-10.3); CARBON DIOXIDE - CO2 27 mmol/L (21-32); CHLORIDE 109 mmol/L (101-111); CHOL/HDL RATIO 2.8 (<4.4); CHOLESTEROL 172 mg/dL; CREATININE 0.7 mg/dL (0.6-1.3); GFR - MDRD 88 (>89); GLUCOSE 62 mg/dL (74-104); HDL CHOLESTEROL 62 mg/dL; LDL CHOLESTEROL,CALCULATED 78 mg/dL; LDL/HDL RATIO 1.3 (<4.4); POTASSIUM 4.3 mmol/L (3.5-4.5); SODIUM 142 mmol/L (135-145); TOTAL PROTEIN 7.7 g/dL (6.4-8.9); TRIGLYCERIDES 159 mg/dL (48-352); VLDL CHOLESTEROL 32 mg/dL
[2023-08-12 09:20] LABS: THYROID STIMULATING HORMONE 1.19 uIU/mL (0.34-5.60)
[2023-08-12 10:22] LABS: ESTIMATED AVERAGE GLUCOSE 91 mg/dL (70-100); HEMOGLOBIN A1c% 4.8 % (4.27-6.07)
== END 2023-08-12 08:34 | disposition home or self-care (01) ==
LOC: LAB 08:33
PROVIDERS: ATTEND Nurse Practitioner Family
DX: Z00.00 Encounter for general adult medical examination without abnormal findings (principal); E66.9 Obesity, unspecified
CPT/HCPCS: 36415; 80053; 80061; 83036; 83721; 84443; 85025